=== PATIENT | female | born 1960 | race African-American/Black ===

== ENCOUNTER 2017-07-19 09:26 | Emergency (ER) | payer BC, OTHER ==
[~2017-07-19] VITALS: Ht 177.8 cm; Wt 89.0 kg
[~2017-07-19 09:26] MED LIST: ACET500T98 PO
[2017-07-19 09:28] VITALS: Ht 177.8 cm; Wt 89.0 kg
[2017-07-19] MEDS ORDERED: PRED20TA PO (10:34)
[2017-07-19] MEDS ORDERED: ALBU8.5H3 INH (10:34)
[2017-07-19] MEDS ORDERED: AZIT250T94 PO (10:34)
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
== END 2017-07-19 11:00 | disposition home or self-care (01) ==
LOC: FTE 09:26
DX: J20.9 Acute bronchitis, unspecified (principal)
CPT/HCPCS: 99284

== ENCOUNTER 2017-08-07 14:41 | Emergency (ER) | END 2017-08-07 17:50 | disposition home or self-care (01) ==

== ENCOUNTER 2019-02-23 22:24 | Emergency (ER) | payer SELFPAY ==
[~2019-02-23] VITALS: Ht 182.9 cm; Wt 83.6 kg
[~2019-02-23 22:24] MED LIST changes: +ACET500C5 PO; +ALBU8.5H8 INH; +AZIT250T PO; +CYCL10TA7 PO; +MED4DP PO; +PRED20TA PO
[2019-02-23 22:27] VITALS: Ht 182.9 cm; Wt 83.6 kg
--- NOTE | 2019-02-23 22:54 | ERD ---
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 Stated that she had a his tory of right shoulder rotator cuff injury couple of months ago. Complains of lower back pain that radiates to right lower extremity. LMP: Unknown. Denies headache, head injury, loss of consciousness, dizziness, neck pain, neck stiffness, throat pain, difficulty swallowing, difficulty breathing lying flat, shoulder pain, chest pain, back pain, abdominal pain, nausea, vomiting, constipation, diarrhea, urinary symptoms, or possibility being , loss of bowel and bladder control, trauma, injury, falls, difficulty walking due to pain, calf pain, recent travel, recent major surgery in the last 3 weeks, calf pain, recent long travel, recent exposure to any illness, recent antibiotic use in the last 3 months, fever, chills, seizures. Past medical history: Denies. Family history of hypertension and diabetes. Surgical history: Denies. Social: Denies smoking, use of alcoholic beverages, use of illegal drugs. ROS All systems reviewed and are negative except as per history of present illness. Medications Home Meds Active Scripts Acetaminophen* (Tylophen*) 500 Mg Capsule, 1 CAP PO Q6H PRN for PAIN AND OR ELEVATED TEMP, #20 CAP Prov:LENORA CAGE 02/24/19 Cyclobenzaprine Hcl* (Cyclobenzaprine Hcl*) 10 Mg Tablet, 10 MG PO TID PRN for MUSCLE SPASMS, #15 TAB Prov:LENORA CAGE 02/24/19 Methylprednisolone* (Medrol* DOSE PACK) 4 Mg/Dose-Pack Tab.ds.pk, 4 MG PO . DIRECTED for 6 Days, PACKET Prov:HARDEEP NAVA 08/07/17 Albuterol Sulfate* (Proair HFA*) 8.5 Gm Hfa.aer.ad, 2 PUFF INH Q4, #1 INHALER Prov:STEPHANIE SINGH PA-C 07/19/17 Azithromycin* (Zithromax*) 250 Mg Tablet, 250 MG PO .SuhaPACK DIRECTED, #6 TAB TAKE 500 MG (2 TABS) THE FIRST DAY THEN 250 MG (1 TAB) DAYS 2-5 Prov:STEPHANIE SINGH PA-C 07/19/17 Prednisone* (Prednisone*) 20 Mg Tab, 40 MG PO DAILY for 5 Days, TAB Prov:STEPHANIE SINGH PA-C 07/19/17 Reported Medications Acetaminophen (Acetaminophen) 500 Mg Tablet, 500 MG PO 01/03/14 Allergies Allergies: Coded Allergies: cigarette smoke (Verified Allergy, Intermediate, 08/07/17) facial swelling PMhx/Soc History of Surgery: Yes (CYST REMOVAL ) Anesthesia Reaction: No Hx Neurological Disorder: No Hx Respiratory Disorders: No Hx Cardiac Disorders: No Hx Psychiatric Problems: No Hx Miscellaneous Medical Probl: No Hx Alcohol Use: No Hx Substance Use: No Hx Tobacco Use: No Smoking Status: Never smoker Physical Exam Vitals Vital Signs Date Temp Pulse Resp B/P (MAP) Pulse Ox O2 O2 Flow FiO2 Time Delivery Rate 02/24/19 97.7 78 17 154/86 100 Room Air 01:59 (108) 02/23/19 97.8 73 16 160/83 98 Room Air 23:28 (108) 02/23/19 97.7 84 18 140/78 100 Room Air 23:11 (98) 02/23/19 98.6 86 16 158/86 100 22:27 (110) Physical Exam Const: No acute distress Head: Atraumatic Eyes: Normal Conjunctiva ENT: Normal External Ears, Nose and Mouth. Neck: Full range of motion. No meningismus. Resp: Clear to auscultation bilaterally Cardio: Regular rate and rhythm, no murmurs Abd: Soft, non tender, non distended. Normal bowel sounds Skin: No petechiae or rashes Back: No midline or flank tenderness. Bilateral hips are stable and unremarkable. No neurovascular deficits. Ext: No cyanosis, or edema. Positive right straight leg test. Negative right cross straight leg test. Negative left straight leg test. Negative left cross straight leg test. Neur: Awake and alert. No obvious facial droop. Follows commands. Speaks full and clear sentences. Equal automatic lathe setter. Equal strength in bilateral upper and lower extremities. Sensation is intact. Romberg test is negative. No neur ological deficits. Psych: Normal Mood and Affect Result Diagram: 02/23/19 8307 02/23/19 2356 Results 24 hrs Laboratory Tests Test 02/23/19 23:56 White Blood Count 3.8 10^3/ul Red Blood Count 3.93 10^6/ul Hemoglobin 11.5 g/dl Hematocrit 35.8 % Mean Corpuscular Volume 91.1 fl Mean Corpuscular Hemoglobin 29.3 pg Mean Corpuscular Hemoglobin Concent 32.1 g/dl Red Cell Distribution Width 13.2 % Platelet Count 216 10^3/UL Mean Platelet Volume 10.5 fl Immature Granulocytes % 0.300 % Neutrophils % 48.7 % Lymphocytes % 36.7 % Monocytes % 9.6 % Eosinophils % 4.2 % Basophils % 0.5 % Nucleated Red Blood Cells % 0.0 /100WBC Immature Granulocytes # 0.010 10^3/ul Neutrophils # 1.9 10^3/ul Lymphocytes # 1.4 10^3/ul Monocytes # 0.4 10^3/ul Eosinophils # 0.2 10^3/ul Basophils # 0.0 10^3/ul Nucleated Red Blood Cells # 0.0 10^3/ul Prothrombin Time 13.0 Sec Prothrombin Time Ratio 1.0 INR International Normalized Ratio 0.97 Activated Partial Thromboplast Time 27.9 Sec Sodium Level 140 mmol/L Potassium Level 4.4 mmol/L Chloride Level 106 mmol/L Carbon Dioxide Level 28 mmol/L Anion Gap 6 Blood Urea Nitrogen 20 mg/dl Creatinine 0.83 mg/dl Est Glomerular Filtrat Rate mL/min > 60 mL/min Glucose Level 101 mg/dl Calcium Level 9.4 mg/dl Total Bilirubin 0.3 mg/dl Direct Bilirubin 0.00 mg/dl Indirect Bilirubin 0.3 mg/dl Aspartate Amino Transf (AST/SGOT) 27 IU/L Alanine Aminotransferase (ALT/SGPT) 24 IU/L Alkaline Phosphatase 48 IU/L Troponin I < 0.012 ng/ml Total Protein 7.4 g/dl Albumin 4.0 g/dl Globulin 3.40 g/dl Albumin/Globulin Ratio 1.17 Current Medications Medications Dose Sig/Rolo Start Time Status Last (Trade) Ordered Route PRN Stop Time Admin Dose Reason Admin Ketorolac 30 mg ONCE STAT 02/23/19 DC 02/23/19 Tromethamine IM 23:01 23:19 (Toradol) 02/23/19 23:02 Famotidine 40 mg ONCE ONCE 02/23/19 DC 02/23/19 (Pepcid) PO 23:30 23:18 02/23/19 23:31 Procedures/MDM Diagnostic tests: EKG: Normal sinus rhythm with a ventricular rate of 80 bpm. No STEMI. Read by supervising physician. This case was discussed with my supervising physician, Dr. Reinaldo Grewal who recommended for me to do a CT of the brain without contrast. Blood works: Reviewed. CT of the brain without contrast: No evidence of acute intracranial pathology. The brain is normal in appearance. Treatment: Re-evaluation: Denies neck pain, chest pain, chest pressure, back pain, abdominal pain, numbness or tingling sensation. No episode of emesis in the emergency department. No clammy skin. No facial droop. Equal automatic lathe setter. Equal strength in bilateral upper and lower extremities. Romberg test negative. No neurological deficits. Stated that she feels much better at this time and that she is ready to go home. Stated that she is comfortable to go home. Differential diagnosis I have low suspicion for acute microinfarction, acute coronary syndrome, stroke, fractures, subluxation. Final diagnosis: Cervical radiculopathy. Sciatica. Paresthesia. Prescription: Flexeril. Motrin. Omeprazole. Follow-up with PCP in the next 24-48 hours. PCP to do an MRI. Come back here in the emergency department for any new symptoms or any worsening symptoms. All questions and concerns were answered. Patient and family members verbalized understanding and agreed with plan of care. Hemodynamically stable on discharge. Departure Diagnosis: Primary Impression: Cervical radiculopathy Additional Impressions: Sciatica Paresthesia Condition: Stable Additional Instructions: Follow-up with PCP in the next 24-48 hours. PCP to do an MRI. Come back here in the emergency department for any new symptoms or any worsening symptoms. LENORA CAGE Feb 23, 2019 22:54
[2019-02-23] MEDS ORDERED: KETOROLAC 30 MG INJ IM STA (23:01)
[2019-02-23] MEDS ORDERED: FAMOTIDINE 20 MG TAB PO ONE (23:30)
[2019-02-24 01:59] VITALS: BP 154/86; PULSE 78; RESP 17
== END 2019-02-24 02:02 | disposition home or self-care (01) ==
LOC: FTE 22:24
DX: M54.12 Radiculopathy, cervical region (principal); R20.2 Paresthesia of skin; M54.41 Lumbago with sciatica, right side
CPT/HCPCS: 70450; 80053; 84484; 85025; 85610; 85730; 93005; 96372; 99285; J1885